=== PATIENT | female | born 1965 | race Two or more races ===

== ENCOUNTER 2024-06-07 17:00 | Emergency (ER) | payer OTHER ==
[~2024-06-07] VITALS: Ht 167.6 cm; Wt 81.6 kg
[2024-06-07] MEDS ORDERED: DEXAMETHASONE SODIUM PHOSPHATE 4 MG/ML VIAL IM STA (19:39)
[2024-06-07] MEDS ORDERED: ORPHENADRINE CITRATE 30 MG/ML AMPUL IM STA (19:40)
[2024-06-07] MEDS ORDERED: KETOROLAC TROMETHAMINE 60 MG VIAL IM STA (19:40)
[2024-06-07] MEDS ORDERED: ORPHENADRINE CITRATE 30 MG/ML AMPUL ONE (19:52)
[2024-06-07] MEDS ORDERED: KETOROLAC TROMETHAMINE 60 MG VIAL IM ONE ×2 (19:52→19:55)
[2024-06-07] MEDS ORDERED: DEXAMETHASONE SODIUM PHOSPHATE 4 MG/ML VIAL ONE ×2 (19:53→19:55)
[2024-06-07] MEDS ORDERED: PERCOCET 10-321 EACH PO (22:19)
[2024-06-07] MEDS ORDERED: OxyCODONE HCL/APAP UD (PERCOCET) PO ONE (22:30)
== END 2024-06-07 23:03 | disposition home or self-care (01) ==
LOC: ER 17:00
DX: S42.291A Other displaced fracture of upper end of right humerus, initial encounter for closed fracture (principal); W18.39XA Other fall on same level, initial encounter; Y93.89 Activity, other specified; Y92.832 Beach as the place of occurrence of the external cause; Y99.9 Unspecified external cause status